=== PATIENT | female | born 1960 | race African-American/Black ===

== ENCOUNTER 2018-01-26 16:43 | Emergency (ER) | payer MEDICARE ==
[2018-01-26] MEDS ORDERED: hydrOXYzine 25 MG TAB ONE (17:16)
== END 2018-01-26 17:39 | disposition home or self-care (01) ==
LOC: BURERS 16:43
DX: B86 Scabies (principal); F41.9 Anxiety disorder, unspecified; I10 Essential (primary) hypertension; F17.210 Nicotine dependence, cigarettes, uncomplicated; Z79.899 Other long term (current) drug therapy
CPT/HCPCS: 99283